=== PATIENT | female | born 1970 | race Caucasian/White ===

== ENCOUNTER 2016-09-03 14:42 | Inpatient (IN) | payer OTHER ==
[~2016-09-03] VITALS: Ht 165.1 cm; Wt 77.0 kg
[2016-09-03] MEDS ORDERED: MORP1CAP32 PO (15:00)
[2016-09-03] MEDS ORDERED: OXYC10TA12 PO (15:00)
[2016-09-03] MEDS ORDERED: PRED20TA PO (15:00)
[2016-09-03] MEDS ORDERED: MORP-38 PO (15:00)
[2016-09-03] MEDS ORDERED: IBUP600T26 PO (15:00)
[2016-09-03] MEDS ORDERED: NS 500 ML IV ONE (15:15)
[2016-09-03 15:32] LABS: BASO % 0.4 % (0.0-1.0); EOS # 0.7 K/mm3 (0.0-0.50); EOS % 6.1 % (0.0-3.0); LARGE UNSTAINED CELL # 0.1 K/mm3 (0.0-0.4); LARGE UNSTAINED CELL % 0.9 % (0.0-4.0); LYMPH # 2.6 K/mm3 (1.5-4.5); LYMPH % 21.3 % (24.0-44.0); MEAN CORPUSCULAR HEMOGLOBIN 31.7 pg (27.0-33.0); MEAN CORPUSCULAR HGB CONC 33.3 g/dl (32.0-36.5); MEAN CORPUSCULAR VOLUME 95.4 fl (80.0-96.0); MONO # 0.6 K/mm3 (0.0-0.8); MONO % 4.7 % (0.0-5.0); NEUTROPHILS # 7.9 K/mm3 (1.8-7.7); NEUTROPHILS % 66.7 % (36.0-66.0); PLATELET COUNT, AUTOMATED 300 k/mm3 (150-450); RED CELL DISTRIBUTION WIDTH 12.5 % (11.5-14.5); WHITE BLOOD COUNT 11.9 K/mm3 (4.0-10.0)
[2016-09-03 15:38] LABS: INR 0.92
[2016-09-03 15:39] LABS: ANION GAP 7 MEQ/L (8-16); BLOOD UREA NITROGEN 8 MG/DL (7-18); CARBON DIOXIDE LEVEL 27 MEQ/L (21-32); CHLORIDE LEVEL 106 MEQ/L (98-107); CREATININE FOR GFR 0.91 MG/DL (0.55-1.02); GLOMERULAR FILTRATION RATE > 60.0 (>58); GLUCOSE, FASTING 109 MG/DL (70-105); POTASSIUM SERUM 4.2 MEQ/L (3.5-5.1); SODIUM LEVEL 140 MEQ/L (136-145)
[2016-09-03] MEDS ORDERED: ACETAMINOPHEN TAB 650MG DOSE (2X325MG) PO PRN (17:45)
[2016-09-03] MEDS ORDERED: ONDANSETRON 4MG/2ML VIAL (J2405) IV PRN (17:45)
[2016-09-03] MEDS ORDERED: ZANA4TAB PO (18:16)
[2016-09-03] MEDS ORDERED: MORP30TASA PO (18:16)
[2016-09-03] MEDS ORDERED: NALOXONE INJ 0.4 MG/1 ML VIAL (J2310) IV PRN (18:45)
[2016-09-03] MEDS: MORPHINE 15 MG SA TAB PO SCH (20:08)
[2016-09-03] MEDS: MORPHINE 30 MG SA TAB PO SCH (20:09)
[2016-09-03] MEDS: IBUPROFEN 600 MG TAB PO PRN (20:12)
[2016-09-03 20:15] VITALS: BP 158/82
--- NOTE | 2016-09-03 20:25 | HPE ---
DATE OF ADMISSION: 09/03/2016 PRIMARY CARE PHYSICIAN: [facility] ([place]) [facility]. INPATIENT HOSPITALIST ATTENDING: Dr. Rickie Mcdowell. CHIEF COMPLAINT: Right arm numbness. HISTORY OF PRESENT ILLNESS: A 46-year-old female with a history of C6-C7 fusion seven years ago, with persistent pain, fibromyalgia, obstructive sleep apnea, chronic migraine post spinal surgery, depression, degenerative joint disease, C6-C7 disc herniation, tachycardia, hyperlipidemia, who presents to the emergency room with acute onset of right arm numbness. The patient had company last night with a friend visiting and had stayed up late. This morning at 10 a.m., her had given her her medications as usual and she appeared normal. At 1 p.m. when she awakened, the patient, according to the , had slurring of speech as if her tongue was swollen. She was unable to feel the right arm and complained of heaviness and numbness from the elbow to the fingertips. She was unable to pronounce words and had difficulty finding the right words. There was no facial asymmetry, no confusion according to the . She denied any lower extremity weakness or numbness. No prior episode of this previously. No changes in her medications for the past few months. The patient usually gets injections to the cervical spine at the [facility] every three months, and recent one was about a month ago. She denies any fever, chills. Initially had no changes in vision, but on exam in the emergency room, she had right upper quadrant anopsia which resolved within two hours. The stated that the slurring of speech lasted for about 3-4 hours. She denied any headache, denied any diplopia, nasal congestion, chest pain, pressure, tightness, shortness of breath, palpitations. Denies any dizziness or lightheadedness. The patient presented to the emergency room (ER) for further evaluation, was found to have a right upper quadrant visual field loss, which resolved after two hours. The patient continued to have right arm numbness from the elbow to the fingertips, with gripping maintained. She had dysmetria on [id number]-[id number] testing on the right but not on the left. The patient's speech resolved within two hours of arrival in the emergency room according to the . She had no facial asymmetry. CT of the head showed no acute intracranial abnormality. Hospitalist service was called for admission for evaluation of right arm numbness. PAST MEDICAL HISTORY: 1. C6-C7 cervical spine fusion seven years ago. 2. Chronic pain. 3. Fibromyalgia. 4. Degenerative joint disease. 5. Obstructive sleep apnea. 6. History of migraine post spinal surgery. 7. Depression. 8. Disc herniation. 9. Tachycardia. 10. Hyperlipidemia. 11. Posttraumatic stress disorder (PTSD). ALLERGIES: 1. TOPAMAX - causing anger. 2. AMBIEN - nightmares. 3. SKELAXIN - increased migraines. 4. CT DYE - joint pain. 5. NEURONTIN - arthralgias. PAST SURGICAL HISTORY: 1. C6-C7 fusion surgery 2006, Dr. Nelson Braahona. 2. Tonsillectomy in her 30s. 3. Adenoidectomy age 11. SOCIAL HISTORY: Previous . Currently on disability. Still smokes two packs a day for the past 20 years. Alcohol use wine once or twice a week. FAMILY HISTORY: Mother alive, age 64 with no medical problems. Father alive in his 60s with neck issues. REVIEW OF SYSTEMS: Per history of present illness (HPI). 12-point system otherwise negative. PHYSICAL EXAMINATION: VITAL SIGNS: Temperature 97.2, pulse 70 sinus, respiratory rate 18, blood pressure 109/72, 95% on room air. GENERAL: The patient is awake, alert, and oriented times three. Able to provide a history. There is no facial asymmetry, no cyanosis, no use of respiratory accessory muscles. Face is symmetric. Tongue is midline. She has no pronator drift. Right-sided dysmetria on [id number]-am-[id number] testing. She has decreased sensation from elbow to the fingertips on the right. No cyanosis on exam. Motor function is 5/5 times four extremities. Gait is normal. LUNGS: Clear to auscultation. No wheezes, rales, or rhonchi. HEART: S1, S2. Sinus rhythm. ABDOMEN: Soft, nontender, nondistended. Positive bowel sounds. EXTREMITIES: No cyanosis, clubbing or pitting edema. LABORATORY DATA: White count 11.9, hemoglobin 13, hematocrit 40, platelet count 300, 66% neutrophils. Sodium 140, potassium 4.2, chloride 106, bicarbonate 27, BUN 8, creatinine 0.91, glucose of 109. INR is 0.92. MICROBIOLOGY: None. IMAGING: CT head: No acute intracranial pathology. Chest x-ray: Minor fibrosis noted in lower lungs without edema, cardiomyopathy, effusion, or acute infiltrate. Mild curvature of thoracic and lumbar spine without acute bony findings. On 10/31/2011, cervical spine x-ray showed unremarkable cervical spine series. MRI of the brain, MRI of cervical spine still pending. ASSESSMENT AND PLAN: This is a 46-year-old female, history of fibromyalgia, C6-C7 fusion surgery with chronic pain and migraines post spinal surgery, depression, degenerative joint disease, disc herniation, tachycardia, hyperlipidemia, obstructive sleep apnea, presents to the emergency room with acute onset of right arm numbness from the elbow to the fingertips with good motor function. Per the , the patient had 3-4 hour history of slurred speech as if the patient had a swollen tongue, which resolved in the emergency room. CT of the head is negative for acute cerebrovascular accident (CVA). Hospitalist service was asked to admit for observation. The patient will be admitted for observation, placed under hospitalist service, Dr. Rickie Mcdowell, for the following issues: 1. Right arm numbness. The patient currently denies any headache. CT of the head is negative for acute CVA. She does have a prior history of chronic migraines. We will obtain an MRI of the brain, MRI of the cervical spine, consult neurology Dr. Palacios. No other focal deficits at this time. The patient's slurred speech has resolved. We will give an aspirin 81 mg times one for now. Further evaluation if abnormal MRI of the brain and cervical spine. Neurologic checks in telemetry. Rule out arrhythmia. Neurologic checks every four hours. Page MD for any new neurological changes, and neurology consult. 2. Active smoking. Tobacco cessation counseling. Nicotine patch or nicotine gum. 3. Chronic pain. May resume home dose of morphine 15 mg twice a day extended release and 60 mg twice a day. Monitor for any neurological changes. Follows at the [facility] with every three monthly injections. Last injection was one month ago. 4. History of obstructive sleep apnea. Check nocturnal pulse oximetry. 5. History of fibromyalgia. Continue the outpatient medications which have not been changed for several years. 6. History of depression, not on any antidepressants. No suicidal ideation. 7. Hyperlipidemia. Check fasting lipid profile in the morning. [facility] SYSTEM[facility]
[2016-09-03] MEDS: HEPARIN SOD (PORCINE) 5000 UNITS/ML VIAL SC SCH (21:53)
--- NOTE | 2016-09-03 22:30 | REPUSA ---
MRI cervical spine without contrast Clinical statement: left arm numbness. Technique: Multiecho multiplanar MRI images of the cervical spine were obtained without administratio n of contrast. No comparison is available. Findings: The cervical vertebral bodies are in satisfactory position and alignment. Anterior surgical fusion changes are noted at C6/C7. No fractures or dislocations are demonstrated. Normal heterogeneo us bone marrow signal is noted. No osseous tumors are seen. The visualized portions of the posterior fossa are unremarkable. The cervical cranial junction is intact. The intervertebral disc spaces and h eights are well-maintained. The facet joints are intact without evidence of subluxation. The cervical spinal cord demonstrates normal signal and contour. The surrounding soft tissues are within normal l imits. At C6/C7, surgical fusion changes are noted. There is a disc osteophyte complex at this level, causin g mass effect on the anterior thecal sac. The central canal measures 9 mm in diameter. The neural for amen are patent. The other cervical vertebral levels are unremarkable. Impression: 1. No acute abnormality. 2. Surgical fusion changes at C6/C7. Moderate disc osteophyte complex is appreciated at this level ca using moderate central canal narrowing. ER nurse, Chandni, was notified of these findings and the findings of the MRI brain at 10:27 PM on 09/04/19 17. The nurse is to notify the hospitalist, but the hospitalist has also been paged to my number, and I am awaitng a call.
--- NOTE | 2016-09-03 22:30 | REPUSA ---
MRI of the brain Clinical history: neck pain, right arm numbness. Technique: Multiecho multiplanar MRI images of the brain were obtained without administration of cont rast. Diffusion weighted images with ADC mapping was also obtained. Findings: The ventricles and sulci are symmetric bilaterally. There is a focal area restricted diffusion in the head of the left caudate nucleus, with minimal restricted diffusion demonstrated within the body of the caudate nucleus. No surrounding edema is appreciated. The brain parenchyma otherwise demonstrates uniform and normal signal on all sequences. There is no midline shift, mass effect, or extra-axial f luid collection. The midline intracranial structures do not demonstrate any gross abnormalities. The cervical cranial junction is intact. The orbits are unremarkable. The visualized paranasal sinuses an d mastoid air cells are clear. The osseous structures and superficial soft tissues are unremarkable. The vascular structures demonstrate appropriate flow voids. Impression: Restricted diffusion in the head and body of the left caudate nucleus, consistent with an acute infarct. No surrounding edema or mass effect is identified at this time. Call will be placed to the ER, and documented on the MRI of the Cervical Spine.
[2016-09-03] MEDS: ATORVASTATIN 20 MG TAB PO SCH (23:10)
[2016-09-04] VITALS (7 sets, daily range): BP systolic 106–167; BP diastolic 57–89
[2016-09-04 00:11] LABS: ERYTHROCYTE SEDIMENTATION RATE 5 mm/hr (0-20)
[2016-09-04 05:41] LABS: BASO % 0.4 % (0.0-1.0); EOS # 0.6 K/mm3 (0.0-0.50); EOS % 7.7 % (0.0-3.0); LARGE UNSTAINED CELL # 0.1 K/mm3 (0.0-0.4); LARGE UNSTAINED CELL % 1.4 % (0.0-4.0); LYMPH # 3.2 K/mm3 (1.5-4.5); LYMPH % 39.3 % (24.0-44.0); MEAN CORPUSCULAR HEMOGLOBIN 31.7 pg (27.0-33.0); MEAN CORPUSCULAR HGB CONC 32.8 g/dl (32.0-36.5); MEAN CORPUSCULAR VOLUME 96.5 fl (80.0-96.0); MONO # 0.5 K/mm3 (0.0-0.8); MONO % 6.5 % (0.0-5.0); NEUTROPHILS # 3.5 K/mm3 (1.8-7.7); NEUTROPHILS % 44.8 % (36.0-66.0); PLATELET COUNT, AUTOMATED 265 k/mm3 (150-450); RED CELL DISTRIBUTION WIDTH 12.6 % (11.5-14.5); WHITE BLOOD COUNT 7.8 K/mm3 (4.0-10.0)
[2016-09-04 06:11] LABS: ANION GAP 5 MEQ/L (8-16); BLOOD UREA NITROGEN 7 MG/DL (7-18); CARBON DIOXIDE LEVEL 28 MEQ/L (21-32); CHLORIDE LEVEL 108 MEQ/L (98-107); CHOLESTEROL LEVEL 215 MG/DL (<200); CREATININE FOR GFR 0.74 MG/DL (0.55-1.02); GLOMERULAR FILTRATION RATE > 60.0 (>58); GLUCOSE, FASTING 105 MG/DL (70-105); POTASSIUM SERUM 4.1 MEQ/L (3.5-5.1); SODIUM LEVEL 141 MEQ/L (136-145); TRIGLYCERIDES LEVEL 231 MG/DL (<150)
[2016-09-04] MEDS: HEPARIN SOD (PORCINE) 5000 UNITS/ML VIAL SC SCH ×3 (06:38→21:09)
--- NOTE | 2016-09-04 07:28 | REP ---
CT BRAIN WITHOUT CONTRAST: 09/03/2016. Comparison 11/23/2011, 12/27/2007 MRI brain. Findings: Noncontrast images show ventricles midline, symmetric and without dilatation or displacement. Basal ganglia symmetric and normal. The frederick-white junction differentiation was well maintained. Cortical stripe was preserved. There is no atrophy, intracranial hemorrhage, mass, mass effect or edema. No extra-axial fluid collection noted. Brainstem unremarkable. Cerebellum shows no mass or atrophy. Basal cisterns were intact. Mastoids, visualized sinuses, skull base and calvarium are without acute finding. Impression: 1. Negative CT brain for any intracranial abnormality nor findings in the skull, skull base, sinuses or mastoids visible. Signed by Adis Barnard MD 09/04/2016 08:05 A
--- NOTE | 2016-09-04 07:30 | REP ---
AP PORTABLE CHEST: 09/03/2016. Comparison 11/21/2008. Clinical history: CVA symptoms. Findings. Lungs are well inflated. Chest wall jewelry noted bilaterally. There is a dextroconvex curvature in the thoracic spine with levorotatory curvature in the lumbar spine. The lowermost portion of a plate and screw fixation device in the cervical spine was noted. Heart is not enlarged. The aorta is normal for age. Airway is intact. There is no mediastinal or hilar mass. Some minor interstitial changes mid and lower lung zones but no acute infiltrate, effusion, pleural thickening or atelectasis. Heart is not enlarged. There is no vascular redistribution or edema. The aorta is normal for age. Impression: 1. Minor interstitial fibrotic changes noted mid and lower lung zones without cardiomegaly, edema, effusion or acute infiltrate. 2. Mild curvature in the thoracic and lumbar spine without acute bony finding. Signed by Adis Barnard MD 09/04/2016 08:05 A
[2016-09-04] MEDS: ASPIRIN 325 MG TAB PO SCH (08:36)
[2016-09-04] MEDS: MORPHINE 15 MG SA TAB PO SCH ×2 (08:36→21:08)
[2016-09-04] MEDS: MORPHINE 30 MG SA TAB PO SCH ×2 (08:37→21:08)
--- NOTE | 2016-09-04 08:57 | REP ---
CERVICAL SPINE THREE VIEWS: 09/03/2016. Clinical history: Right arm numbness. History of C6-C7 fusion. Findings: Open-mouth view was repeated. Dens and lateral masses of C1 align normally. On the lateral projection, the C1-2 relationship is normal. There has been fusion at C6-7 with graft incorporation and hardware including screws unremarkable. No change in alignment from the 2012 study. Disc space heights and vertebral body heights are intact. There is loss of normal cervical lordosis as on the previous study. No compression deformity is seen. Pedicles, spinous and transverse processes grossly intact. Impression: 1. Status post C6-C7 anterior cervical discectomy and fusion with graft incorporation and the hardware intact. Alignment unchanged. 2. Straightening of the spine as before. No new or acute finding. Signed by Adis Barnard MD 09/04/2016 09:10 A
[2016-09-04] MEDS ORDERED: ASPIRIN 81 MG ENTERIC TAB PO SCH (09:00)
[2016-09-04] MEDS ORDERED: ENOXAPARIN 30 MG/0.3 ML SYR (J1650) SC SCH (09:00)
[2016-09-04] MEDS: NS 1,000 ML IV SCH ×2 (10:00→18:12)
[2016-09-04] MEDS: IBUPROFEN 600 MG TAB PO PRN ×2 (12:00→18:29)
--- NOTE | 2016-09-04 13:46 | IPNPDOC ---
Text Note Date of Service The patient was seen on 09/04/16. NOTE Subjective: Pt states that her vision deficit/dysarthria/dysmetria has resolved. She still has some numbness in the right upper extremity below the elbow. Objective: Vitals: (see below) General: No acute distress, laying comfortably in bed. HEENT: Moist mucous membranes. Neck: No JVD or lymphadenopathy Cardiac: RRR, No murmurs Pulm: Clear to auscultation b/l. No wheezing, rhonchi Abd: NT/ND + BS Ext: No edema or cyanosis. Distal pulses intact and right upper extremity. Mild swelling in the right upper extremity below the elbow however for the patient does have a peripheral IV fluids running. Neuro: Strength 5/5 BUE and BLE. CN 2-12 intact. F to N intact Negative pronator drift. Negative Babinki. Sensation to fine/sharp touch intact in RUE. NIH 0 Labs (see below) Images: MRI cervical spine 09/03/16 Findings: The cervical vertebral bodies are in satisfactory position and alignment. Anterior surgical fusion changes are noted at C6/C7. No fractures or dislocations are demonstrated. Normal heterogeneous bone marrow signal is noted. No osseous tumors are seen. The visualized portions of the posterior fossa are unremarkable. The cervical cranial junction is intact. The intervertebral disc spaces and heights are well-maintained. The facet joints are intact without evidence of subluxation. The cervical spinal cord demonstrates normal signal and contour. The surrounding soft tissues are within normal limits. At C6/C7, surgical fusion changes are noted. There is a disc osteophyte complex at this level, causing mass effect on the anterior thecal sac. The central canal measures 9 mm in diameter. The neural foramen are patent. The other cervical vertebral levels are unremarkable. Impression: 1. No acute abnormality. 2. Surgical fusion changes at C6/C7. Moderate disc osteophyte complex is appreciated at this level causing moderate central canal narrowing. ER nurse, Chandni, was notified of these findings and the findings of the MRI brain at 10:27 PM on 09/03/2016. The nurse is to notify the hospitalist, but the hospitalist has also been paged to my number, and I am awaitng a call. MRI brain 09/03/16 Findings: The ventricles and sulci are symmetric bilaterally. There is a focal area restricted diffusion in the head of the left caudate nucleus, with minimal restricted diffusion demonstrated within the body of the caudate nucleus. No surrounding edema is appreciated. The brain parenchyma otherwise demonstrates uniform and normal signal on all sequences. There is no midline shift, mass effect, or extra-axial fluid collection. The midline intracranial structures do not demonstrate any gross abnormalities. The cervical cranial junction is intact. The orbits are unremarkable. The visualized paranasal sinuses and mastoid air cells are clear. The osseous structures and superficial soft tissues are unremarkable. The vascular structures demonstrate appropriate flow voids. Impression: Restricted diffusion in the head and body of the left caudate nucleus, consistent with an acute infarct. No surrounding edema or mass effect is identified at this time. CT head/01/12 Impression:1. Negative CT brain for any intracranial abnormality nor findings in the skull, skull base, sinuses or mastoids visible. Assessment/Plan 1. Acute CVA- symptoms resolved. NIH currently 0. MRI brain (see above). On aspirin and statin. Carotid ultrasound/MRA pending. Appreciate Dr. Palacios's input. Concerning for atrial fibrillation. We'll continue monitoring on telemetry. Patient currently smokes tobacco. I did offer her nicotine patch however she refused. I have also counseled her on tobacco cessation. She also states she is reluctant to take statin she does not feel that she needs it however she will consider taking. PT/OT/ST. Neuro checks every 4 hours. Transesophageal echo ordered by neurology. 2. White arm numbness with a history of C6-C7 cervical spine fusion 7 years ago - MR I cervical spine (see above). Will consult neurosurgery to review imaging. 3. Fibromyalgia/chronic pain- continue home meds 4. History of depression/PTSD- continue home meds 5. History of obstructive sleep apnea DVT prophy: Heparin subcutaneous VS,Fishbone, I+O VS, Fishbone, I+O Laboratory Tests 09/03/16 15:06 Calcium Level 9.0, Red Blood Count 4.25, Mean Corpuscular Volume 95.4, Mean Corpuscular Hemoglobin 31.7, Mean Corpuscular Hemoglobin Concent 33.3, Red Cell Distribution Width 12.5, Neutrophils (%) (Auto) 66.7 H, Lymphocytes (%) (Auto) 21.3 L, Monocytes (%) (Auto) 4.7, Eosinophils (%) (Auto) 6.1 H, Basophils (%) ( Auto) 0.4, Neutrophils # (Auto) 7.9 H, Lymphocytes # (Auto) 2.6, Monocytes # ( Auto) 0.6, Eosinophils # (Auto) 0.7 H, Basophils # (Auto) 0.0 09/04/16 05:23 Red Blood Count 3.98 L, Mean Corpuscular Volume 96.5 H, Mean Corpuscular Hemoglobin 31.7, Mean Corpuscular Hemoglobin Concent 32.8, Red Cell Distribution Width 12.6, Neutrophils (%) (Auto) 44.8, Lymphocytes (%) (Auto) 39.3, Monocytes (%) (Auto) 6.5 H, Eosinophils (%) (Auto) 7.7 H, Basophils (%) ( Auto) 0.4, Neutrophils # (Auto) 3.5, Lymphocytes # (Auto) 3.2, Monocytes # (Auto ) 0.5, Eosinophils # (Auto) 0.6 H, Basophils # (Auto) 0.0 Vital Signs Date Time Temp Pulse Resp B/P Pulse Ox O2 Delivery O2 Flow Rate FiO2 09/04/16 12:00 97.8 82 20 167/89 93 Room Air I&O- Last 24 Hours up to 6 AM 09/04/16 06:00 Intake Total 620 ml Output Total 0 ml Balance 620 ml ALLEN FIGUEORA MD Sep 04, 2016 13:46
[2016-09-04] MEDS: oxyCODONE 5MG TAB PO PRN (16:06)
[2016-09-04] MEDS: tiZANidine 4 MG TAB PO PRN (18:28)
--- NOTE | 2016-09-04 19:09 | CR ---
DATE OF CONSULTATION: 09/04/2016 REFERRING PHYSICIAN: Dr. Kristine Laura. REASON FOR CONSULTATION: Right arm numbness and slurred speech. HISTORY OF PRESENT ILLNESS: Kennedi Lemus is a 46-year-old woman with history of cervical fusion seven years ago, with persistent neck pain, fibromyalgia, obstructive sleep apnea, migraines, who was at her baseline state of health until Monday night when she went to bed around 02:30 a.m. She woke up around 10:00 a.m. and did not have any problems. She decided to go back to sleep. She woke up around 01:00 p.m. and had right arm numbness and slurred speech. She had word-finding difficulty. She came to [facility] by 03:00 p.m. Due to lack of clear onset time and low [employer] [place] [employer] (NIH) stroke scale, patient was not deemed to be a candidate for intravenous thrombolytics. The patient did not have any weakness of right arm. She did not have any problem with her balance. She denied any problems on left side of her body. She denies any seizures, dysphagia, dysarthria or diplopia currently. Her speech has improved. Her right arm numbness is 80% better. She denies any weakness. PAST MEDICAL HISTORY: 1. C6-C7 cervical fusion seven years ago. 2. Chronic neck pain. 3. Fibromyalgia. 4. Obstructive sleep apnea. 5. Chronic migraines. 6. Depression. 7. Tachycardia. 8. Post-traumatic stress disorder. ALLERGIES: TOPAMAX, AMBIEN, SKELAXIN, INTRAVENOUS CONTRAST DYE, GABAPENTIN. SOCIAL HISTORY: She smokes two packs per day. She denies illicit drugs. She drinks alcohol occasionally. FAMILY HISTORY: Father had neck issues. Mother does not have any medical problems. REVIEW OF SYSTEMS: All systems were reviewed and were found to be noncontributory except as mentioned in history present illness. PHYSICAL EXAMINATION: Respiratory 20, temperature 97.4, blood pressure 106/63. HEART: Regular rate and rhythm. LUNGS: Clear to auscultation. ABDOMEN: Soft, nontender, nondistended. NEUROLOGICAL EXAMINATION: Patient is awake, alert, oriented to place, person and time. Normal speech, comprehension and repetition. Extraocular muscles are intact. No facial weakness. Tongue and uvula are midline. 5/5 strength in all four extremities. Deep tendon flexes are 2+ throughout. Normal sensation in left arm and both lower extremities. She feels sensation to light touch, pinprick, vibration, 80% in right arm compared to left arm. No dysmetria or ataxia. DIAGNOSTIC STUDIES: Her MRI scan of brain was reviewed and showed a small left caudate nucleus ischemic stroke. MRI cervical spine showed moderate cervical stenosis at C6-C7 and postsurgical changes at the same level. ASSESSMENT: 1. Small left caudate nucleus ischemic stroke. 2. Tobacco abuse. 3. Chronic neck pain due to cervical disk disease. The patient is status post cervical fusion many years ago. PLAN: 1. Blood tests to rule out coagulopathy and vasculopathy. 2. She must quit smoking. 3. Transesophageal echocardiogram. 4. Carotid ultrasound and MRA brain. 5. Continue telemetry monitoring. 6. Aspirin 325 mg by mouth daily. 7. We should check her fasting lipid profile. She is already started on statins. 8. Follow with our office in two weeks after hospital discharge.
--- NOTE | 2016-09-04 20:57 | ECGEPIP ---
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
[2016-09-04] MEDS: ATORVASTATIN 20 MG TAB PO SCH (21:00)
[2016-09-05] MEDS: oxyCODONE 5MG TAB PO PRN ×2 (00:09→16:05)
[2016-09-05 04:45] VITALS: BP 134/78
[2016-09-05] MEDS: HEPARIN SOD (PORCINE) 5000 UNITS/ML VIAL SC SCH ×3 (05:23→21:17)
[2016-09-05 05:38] LABS: BASO % 0.4 % (0.0-1.0); EOS # 0.5 K/mm3 (0.0-0.50); EOS % 6.8 % (0.0-3.0); LARGE UNSTAINED CELL # 0.2 K/mm3 (0.0-0.4); LARGE UNSTAINED CELL % 1.9 % (0.0-4.0); LYMPH # 4.1 K/mm3 (1.5-4.5); LYMPH % 49.1 % (24.0-44.0); MEAN CORPUSCULAR HEMOGLOBIN 31.5 pg (27.0-33.0); MEAN CORPUSCULAR HGB CONC 32.6 g/dl (32.0-36.5); MEAN CORPUSCULAR VOLUME 96.7 fl (80.0-96.0); MONO # 0.4 K/mm3 (0.0-0.8); MONO % 4.9 % (0.0-5.0); NEUTROPHILS # 2.9 K/mm3 (1.8-7.7); NEUTROPHILS % 36.9 % (36.0-66.0); PLATELET COUNT, AUTOMATED 239 k/mm3 (150-450); RED CELL DISTRIBUTION WIDTH 12.3 % (11.5-14.5)
[2016-09-05 05:53] LABS: ANION GAP 7 MEQ/L (8-16); BLOOD UREA NITROGEN 8 MG/DL (7-18); CALCIUM LEVEL 7.9 MG/DL (8.5-10.1); CARBON DIOXIDE LEVEL 26 MEQ/L (21-32); CHLORIDE LEVEL 109 MEQ/L (98-107); CREATININE FOR GFR 0.82 MG/DL (0.55-1.02); GLOMERULAR FILTRATION RATE > 60.0 (>58); GLUCOSE, FASTING 107 MG/DL (70-105); POTASSIUM SERUM 3.9 MEQ/L (3.5-5.1); SODIUM LEVEL 142 MEQ/L (136-145)
--- NOTE | 2016-09-05 07:32 | REP ---
CAROTID DUPLEX ULTRASOUND: 09/04/2016 CLINICAL HISTORY: CVA symptoms. TECHNIQUE: Standard duplex techniques were utilized for both carotid systems. FINDINGS: The right common carotid shows no significant plaque except posteriorly with some minimal soft plaque at the bulb. No calcific plaque is seen in the proximal ICA without any visible or significant plaque. The left CCA shows only minimal intimal thickening without significant plaque. The bulb and proximal ICA show no soft or calcific plaque. Peak Velocities: RIGHT LEFT CCA systolic 0.85 0.85 m/s ICA systolic 0.78 0.69 m/s ICA diastolic 0.40 0.30 m/s ECA systolic 1.30 0.96 m/s IC/CC ratio 0.97 0.81 Cranial direction of flow is noted in the vertebral arteries bilaterally. The Doppler waveform analysis shows no significant spectral broadening or filling of the systolic window for either internal carotid. IMPRESSION: 1. Negative carotid duplex ultrasound. There is no hemodynamically significant or flow restricting lesion. Only trace amounts of plaque with only soft plaque noted at the bulb region. 2. Cranial direction of flow in the vertebral arteries. SEDRICKD
[2016-09-05 08:00] VITALS: BP 101/74
[2016-09-05] MEDS: MORPHINE 15 MG SA TAB PO SCH ×2 (08:29→21:19)
[2016-09-05] MEDS: ASPIRIN 325 MG TAB PO SCH (08:29)
[2016-09-05] MEDS: MORPHINE 30 MG SA TAB PO SCH ×2 (08:29→21:18)
[2016-09-05] MEDS: tiZANidine 4 MG TAB PO PRN (10:13)
[2016-09-05] MEDS: IBUPROFEN 600 MG TAB PO PRN ×2 (10:13→16:05)
--- NOTE | 2016-09-05 11:16 | REP ---
MR ANGIOGRAPHY THE BRAIN WITHOUT CONTRAST: HISTORY: Right-sided numbness. MRI study of the brain from September 03, 2016 showed an acute infarct pattern in the head of the caudate nucleus on the left. TECHNIQUE: 3D [id number] MR angiography of the brain is acquired in the usual fashion and maximal intensity projection images were generated in rotational format about the vertical and horizontal axes. In addition, source axial T1-weighted images are viewed in cine mode. MR ANGIOGRAPHIC FINDINGS: The distal vertebral arteries are patent and the left is somewhat larger than the right . Basilar artery is a little tortuous but widely patent. The posterior cerebral and superior cerebellar vessels are normal and symmetric. The distal internal carotid arteries are unremarkable. Anterior cerebral arteries appear intact. There is attenuation of the M1 segment of the middle cerebral artery on the left. This is the location of the origin of the medial and lateral lenticulostriate penetrating arteries, which would supply the head of the caudate nucleus on the left. No other abnormality. There is no visible amador aneurysm or arteriovenous malformation. IMPRESSION: There is attenuation of the left M1 middle cerebral artery segment compared to the right. Otherwise unremarkable MR angiography the brain. Signed by Kali Cruz MD 09/05/2016 11:51 A
[2016-09-05 12:00] VITALS: BP 119/73
[2016-09-05] MEDS ORDERED: SLF 3 ML SYR IV PRN (13:45)
[2016-09-05] MEDS: SLF 3 ML SYR IV SCH ×2 (14:04→21:19)
--- NOTE | 2016-09-05 14:04 | IPNPDOC ---
Text Note Date of Service The patient was seen on 09/05/16. NOTE Subjective: Pt states denies any complaints. Numbness in the right upper extremity has resolved. Objective: Vitals: (see below) General: No acute distress, laying comfortably in bed. HEENT: Moist mucous membranes. Neck: No JVD or lymphadenopathy Cardiac: RRR, No murmurs Pulm: Clear to auscultation b/l. No wheezing, rhonchi Abd: NT/ND + BS Ext: No edema or cyanosis. Distal pulses intact and right upper extremity. Mild swelling in the right upper extremity below the elbow however for the patient does have a peripheral IV fluids running. Neuro: Strength 5/5 BUE and BLE. CN 2-12 intact. F to N intact Negative pronator drift. Negative Babinki. Sensation to fine/sharp touch intact in RUE. NIH 0 Labs (see below) Images: MRI cervical spine 09/03/16 Findings: The cervical vertebral bodies are in satisfactory position and alignment. Anterior surgical fusion changes are noted at C6/C7. No fractures or dislocations are demonstrated. Normal heterogeneous bone marrow signal is noted. No osseous tumors are seen. The visualized portions of the posterior fossa are unremarkable. The cervical cranial junction is intact. The intervertebral disc spaces and heights are well-maintained. The facet joints are intact without evidence of subluxation. The cervical spinal cord demonstrates normal signal and contour. The surrounding soft tissues are within normal limits. At C6/C7, surgical fusion changes are noted. There is a disc osteophyte complex at this level, causing mass effect on the anterior thecal sac. The central canal measures 9 mm in diameter. The neural foramen are patent. The other cervical vertebral levels are unremarkable. Impression: 1. No acute abnormality. 2. Surgical fusion changes at C6/C7. Moderate disc osteophyte complex is appreciated at this level causing moderate central canal narrowing. ER nurse, Chandni, was notified of these findings and the findings of the MRI brain at 10:27 PM on 09/03/2016. The nurse is to notify the hospitalist, but the hospitalist has also been paged to my number, and I am awaitng a call. MRI brain 09/03/16 Findings: The ventricles and sulci are symmetric bilaterally. There is a focal area restricted diffusion in the head of the left caudate nucleus, with minimal restricted diffusion demonstrated within the body of the caudate nucleus. No surrounding edema is appreciated. The brain parenchyma otherwise demonstrates uniform and normal signal on all sequences. There is no midline shift, mass effect, or extra-axial fluid collection. The midline intracranial structures do not demonstrate any gross abnormalities. The cervical cranial junction is intact. The orbits are unremarkable. The visualized paranasal sinuses and mastoid air cells are clear. The osseous structures and superficial soft tissues are unremarkable. The vascular structures demonstrate appropriate flow voids. Impression: Restricted diffusion in the head and body of the left caudate nucleus, consistent with an acute infarct. No surrounding edema or mass effect is identified at this time. CT head/01/12 Impression:1. Negative CT brain for any intracranial abnormality nor findings in the skull, skull base, sinuses or mastoids visible. Assessment/Plan 1. Acute CVA- symptoms resolved. NIH currently 0. MRI brain (see above). On aspirin and statin. Carotid ultrasound/MRA pending. Appreciate Dr. Palacios's input. Concerning for atrial fibrillation. We'll continue monitoring on telemetry. Patient currently smokes tobacco. I did offer her nicotine patch however she refused. I have also counseled her on tobacco cessation. She also states she is reluctant to take statin she does not feel that she needs it however she will consider taking. PT/OT/ST. Neuro checks every 4 hours. Transesophageal echo ordered by neurology; I have spoken to Dr. Kelly, who will be doing it tomorrow at 3pm. 2. White arm numbness with a history of C6-C7 cervical spine fusion 7 years ago - MR I cervical spine (see above). Discussed with Dr. Meyers,, who believes that the surgical site looks good and although she has some canal stenosis above , there is no cord compression and no obvious reason for the numbness in her arm /hand. I have offered the patient to consult Dr. Barahona as he did her cervical fusion, however she declined and states that she will follow-up with an outpatient if she needs to. 3. Fibromyalgia/chronic pain- continue home meds 4. History of depression/PTSD- continue home meds 5. History of obstructive sleep apnea DVT prophy: Heparin subcutaneous VS,Fishbone, I+O VS, Fishbone, I+O Laboratory Tests 09/05/16 05:17 Calcium Level 7.9 L, Red Blood Count 3.72 L, Mean Corpuscular Volume 96.7 H, Mean Corpuscular Hemoglobin 31.5, Mean Corpuscular Hemoglobin Concent 32.6, Red Cell Distribution Width 12.3, Neutrophils (%) (Auto) 36.9, Lymphocytes (%) (Auto ) 49.1 H, Monocytes (%) (Auto) 4.9, Eosinophils (%) (Auto) 6.8 H, Basophils (%) (Auto) 0.4, Neutrophils # (Auto) 2.9, Lymphocytes # (Auto) 4.1, Monocytes # ( Auto) 0.4, Eosinophils # (Auto) 0.5, Basophils # (Auto) 0.0 Vital Signs Date Time Temp Pulse Resp B/P Pulse Ox O2 Delivery O2 Flow Rate FiO2 09/05/16 12:00 98.6 71 18 119/73 96 Room Air I&O- Last 24 Hours up to 6 AM 09/05/16 06:00 Intake Total 3105 ml Output Total 5100 ml Balance -1995 ml ALLEN FIGUEROA MD Sep 05, 2016 14:04
[2016-09-05 16:00] VITALS: BP 127/76
[2016-09-05 19:43] VITALS: BP 140/82
[2016-09-05] MEDS: ATORVASTATIN 20 MG TAB PO SCH (21:00)
[2016-09-05 23:43] VITALS: BP 127/79
[2016-09-06 04:26] VITALS: BP 105/68
[2016-09-06 05:30] LABS: BASO % 0.3 % (0.0-1.0); EOS # 0.6 K/mm3 (0.0-0.50); EOS % 7.4 % (0.0-3.0); LARGE UNSTAINED CELL # 0.1 K/mm3 (0.0-0.4); LARGE UNSTAINED CELL % 1.3 % (0.0-4.0); LYMPH # 3.7 K/mm3 (1.5-4.5); LYMPH % 43.9 % (24.0-44.0); MEAN CORPUSCULAR HEMOGLOBIN 31.4 pg (27.0-33.0); MEAN CORPUSCULAR HGB CONC 33.2 g/dl (32.0-36.5); MEAN CORPUSCULAR VOLUME 94.4 fl (80.0-96.0); MONO # 0.4 K/mm3 (0.0-0.8); NEUTROPHILS # 3.4 K/mm3 (1.8-7.7); NEUTROPHILS % 42.2 % (36.0-66.0); PLATELET COUNT, AUTOMATED 229 k/mm3 (150-450); RED CELL DISTRIBUTION WIDTH 12.2 % (11.5-14.5); WHITE BLOOD COUNT 8.1 K/mm3 (4.0-10.0)
[2016-09-06] MEDS: SLF 3 ML SYR IV SCH ×2 (05:40→14:44)
[2016-09-06] MEDS: HEPARIN SOD (PORCINE) 5000 UNITS/ML VIAL SC SCH ×2 (05:40→14:44)
[2016-09-06] MEDS: IBUPROFEN 600 MG TAB PO PRN ×2 (05:41→18:05)
[2016-09-06 05:54] LABS: BLOOD UREA NITROGEN 7 MG/DL (7-18); CREATININE FOR GFR 0.86 MG/DL (0.55-1.02); GLUCOSE, FASTING 101 MG/DL (70-105)
[2016-09-06 05:55] LABS: ANION GAP 8 MEQ/L (8-16); CALCIUM LEVEL 8.9 MG/DL (8.5-10.1); CARBON DIOXIDE LEVEL 27 MEQ/L (21-32); CHLORIDE LEVEL 108 MEQ/L (98-107); GLOMERULAR FILTRATION RATE > 60.0 (>58); POTASSIUM SERUM 3.9 MEQ/L (3.5-5.1); SODIUM LEVEL 143 MEQ/L (136-145)
[2016-09-06 07:45] VITALS: BP 104/63
[2016-09-06] MEDS: ASPIRIN 325 MG TAB PO SCH (08:38)
[2016-09-06] MEDS: MORPHINE 30 MG SA TAB PO SCH (08:39)
[2016-09-06] MEDS: MORPHINE 15 MG SA TAB PO SCH (08:39)
[2016-09-06] MEDS: tiZANidine 4 MG TAB PO PRN (09:37)
[2016-09-06 12:00] VITALS: BP 121/67
[2016-09-06] MEDS ORDERED: MIDAZOLAM INJ 2 MG/2 ML VIAL (J2250) As Ordered ONE ×3 (15:04→15:20)
[2016-09-06] MEDS ORDERED: LIDOCAINE VISCOUS 2% SOLN 15ML UDC As Ordered ONE ×2 (15:09→15:10)
[2016-09-06] MEDS ORDERED: fentaNYL 100 MCG/2 ML INJECTION (J3010) As Ordered ONE (15:19)
[2016-09-06 16:15] VITALS: BP 122/79
--- NOTE | 2016-09-06 16:26 | T-ECHO ---
DATE OF PROCEDURE: 09/06/2016 REFERRING PHYSICIAN: Dr. Mcdowell INDICATION: Stroke. PROCEDURE: Transesophageal echocardiogram. FINDINGS: Essentially normal transesophageal echocardiogram. PROCEDURE NOTE: Mrs. Lemus is a 46-year-old white female who presented with ischemic stroke. Transesophageal echocardiogram was recommended by neurology service. I met with the patient the night before the procedure. I explained the rationale and potential complications and findings, and she signed appropriate consent. The procedure was performed in endoscopy suite. DESCRIPTION OF PROCEDURE: The patient was brought to endoscopy suite in fasting condition. Her posterior pharynx was anesthetized using viscous lidocaine and Cetacaine spray. She was sedated using a total of 6 mg of IV Versed and 100 mcg is of IV fentanyl. When appropriate level of sedation was accomplished, probe was introduced into esophagus and later stomach without difficulty. After appropriate images were obtained, it was withdrawn. There were no complications, and the patient tolerated the procedure well. FINDINGS: Both atria appear normal. Both right and left ventricle have normal contractility. Estimated left ventricular ejection fraction (LVEF) around 65%. Left atrium is normal size. Left atrial appendage is free of thrombus. There is normal flow pattern in both left-sided and right-sided pulmonary veins. Atrial septum is intact based on 2D, color Doppler imaging as well as there is no evidence for shunt based on injection of agitated saline. Tricuspid valve is normal. There is no stenosis or insufficiency. Same applies for mitral and aortic valve. Pulmonic valve was also well seen and appeared normal without stenosis or insufficiency. No pericardial effusion is present. Aortic arch and visualized segment of descending and ascending aorta are free of significant atherosclerosis. CONCLUSIONS: Essentially normal transesophageal echocardiogram. COMMENT: The patient will move back to the progressive care unit (PCU) when meeting criteria and then there is a tentative plan for her to be discharged home later today.
--- NOTE | 2016-09-06 17:39 | IPN ---
DATE: 09/06/2016 SUBJECTIVE: Patient seen and examined in the room today. Patient placed on nothing by mouth since midnight for transesophageal echocardiogram (ARETHA) scheduled for this afternoon. Patient denied any recurrence of symptoms. I reviewed patient's medication list and discovered patient has been refusing the Lipitor since admission and patient was admitted for stroke. Patient stated she does not believe in the effect of statins, and even though I discussed with patient that she had a stroke and she has elevated lipid panel, she still continues to refuse the statin. The risks and the benefits of statins were explained to the patient. Patient stated she understands; however, she refused to follow recommendation after a long discussion. OBJECTIVE: VITAL SIGNS: Temperature 97.8, pulse 54, respirations 22, blood pressure 104/63, pulse oximetry 96% on room air. GENERAL: No signs of acute distress. Alert and oriented times three. HEENT: Normocephalic, atraumatic. Extraocular motor grossly intact. CARDIOVASCULAR: Positive S1, S2. Regular rate. LUNGS: Clear to auscultation bilaterally. No wheezes or rhonchi. ABDOMEN: Soft, nontender, nondistended. Bowel sounds present. No rebound. No guarding. EXTREMITIES: No edema. No cyanosis. LABORATORY DATA: WBC 8.1, hemoglobin 11.7, hematocrit 35.8, platelet count 229. Sodium 143, potassium 3.9, chloride 27, BUN 7, creatinine 0.86, GFR greater than 60, fasting glucose 101, calcium 8.9. ASSESSMENT AND PLAN: 1. Left caudate nucleus ischemic stroke. Nephrology is consulted. Recommend a transesophageal echocardiogram (ARETHA). Patient will have a scheduled ARETHA by Dr. Kelly this afternoon. Patient has been on nothing by mouth. Patient is currently on aspirin 325 by mouth daily. Statin has been recommend; however, patient continues to refuse, even after a long discussion, patient refused to take statin. Patient has a significant tobacco abuse history. 2. Fibromyalgia/chronic pain. Patient has morphine sulfate (MS Contin) scheduled. Patient also has as needed oxycodone. 3. History of depression and posttraumatic stress disorder (PTSD). Continue to monitor. Patient is not taking any medications. 4. History of obstructive sleep apnea (TORI). 5. Chronic alcohol abuse. 6. Deep venous thrombosis (DVT) prophylaxis. Patient is on heparin.
[2016-09-06] MEDS: oxyCODONE 5MG TAB PO PRN (18:04)
[2016-09-06] MEDS ORDERED: ASPI325T PO (18:14)
[2016-09-06] MEDS ORDERED: ATOR1TAB21 PO (18:14)
[2016-09-08 00:07] LABS: SJOGREN'S ANTI SS-A <0.2 AI (0.0-0.9); SJOGREN'S ANTI SS-B <0.2 AI (0.0-0.9)
[2016-09-08 08:06] LABS: PROTEIN C ANTIGEN 109 % (60-150); PROTEIN S ANTIGEN FREE 116 % (57-157); PROTEIN S ANTIGEN TOTAL 128 % (60-150)
== END 2016-09-06 18:55 | disposition home or self-care (01) | DRG 66 ==
LOC: M ED 15:35 → M ED INP 17:38 → M PCU 09-04 00:03
PROVIDERS: ADMIT General Practice; ATTEND Internal Medicine
PROC: B246ZZ4 Ultrasonography of Right and Left Heart, Transesophageal (ICD-10-PCS; principal; 2016-09-06 15:15)
DX: I63.8 Other cerebral infarction (principal); R20.0 Anesthesia of skin; M79.7 Fibromyalgia; G47.33 Obstructive sleep apnea (adult) (pediatric); G43.709 Chronic migraine without aura, not intractable, without status migrainosus; F32.9 Major depressive disorder, single episode, unspecified; E78.5 Hyperlipidemia, unspecified; M54.2 Cervicalgia; F17.210 Nicotine dependence, cigarettes, uncomplicated; F10.10 Alcohol abuse, uncomplicated; M19.90 Unspecified osteoarthritis, unspecified site; F43.10 Post-traumatic stress disorder, unspecified; Z88.8 Allergy status to other drugs, medicaments and biological substances; Z91.041 Radiographic dye allergy status; Z98.1 Arthrodesis status; Z79.891 Long term (current) use of opiate analgesic; Z79.1 Long term (current) use of non-steroidal anti-inflammatories (NSAID)

== ENCOUNTER → 2017-06-27 | Outpatient (CLI) | payer OTHER | LOC: M RAD 13:35 | DX: Z12.31 Encounter for screening mammogram for malignant neoplasm of breast (principal) | CPT/HCPCS: 77067 ==

== ENCOUNTER → 2017-11-28 | Outpatient (REF) | LOC: M SMT 12:03 | DX: Z02.71 Encounter for disability determination (principal) ==

== ENCOUNTER → 2018-07-02 | Outpatient (CLI) | payer OTHER ==
[~2018-07-02] MED LIST: ASPI325T PO; ATOR1TAB21 PO; IBUP-1022 PO; MORP-38 PO; MORP1CAP32 PO; MORP30TASA PO; OXYC10TA12 PO; PRED20TA PO; ZANA4TAB PO
--- NOTE | 2018-07-02 14:15 | REPMRS ---
Patient History No known family history of cancer. 2D only. Digital Mammo Screening Bilat: July 02, 2018 - Exam #: [id number] Bilateral CC and MLO view(s) were taken. Technologist: Sandie Tam, Technologist Prior study comparison: June 27, 2017, bilateral digital mammo screening bilat performed at [facility] [place]. June 22, 2015, bilateral digital mammo screening bilat performed at [facility] [place]. FINDINGS: The breast tissue is heterogeneously dense. This may lower the sensitivity of mammography. There is a moderate amount of heterogeneously dense fibroglandular tissue which is fairly symmetric. There is no interval development of dominant mass, architectural distortion, or clustered microcalcification typical of malignancy. There has been no change in the appearance of the mammogram from the prior studies. Assessment: BI-RADS/ACR category 1 mammogram. Negative Mammogram. Recommendation Routine screening mammogram of both breasts in 1 year (for women over age 40). This patient's Lifetime Breast Cancer RIsk is estimated at 8.2 %. This mammogram was interpreted with the aid of an FDA-approved computer-aided dectection system. Electronically Signed By: Anish Cruz MD 07/02/18 [id number]
== END ==
LOC: M RAD 13:06
PROVIDERS: ATTEND Nurse Practitioner Family
DX: Z12.31 Encounter for screening mammogram for malignant neoplasm of breast (principal)

== ENCOUNTER → 2019-07-12 | Outpatient (CLI) | payer OTHER ==
[~2019-07-12] MED LIST changes: +ASPI-1 PO; -ASPI325T PO; -MORP-38 PO; +MORP-69 PO
--- NOTE | 2019-07-12 15:35 | REPMRS ---
Patient History The patient states she had a clinical breast exam in 03/2019. No known family history of cancer. Benign cyst aspiration of the right breast, 2002. No Hormone Replacement Therapy Digital Woman Screen Mammo: July 12, 2019 - Exam #: [id number] Bilateral CC and MLO view(s) were taken. Technologist: Maru Martinez, Technologist Prior study comparison: July 02, 2018, bilateral digital mammo screening bilat, performed at [facility]. June 27, 2017, bilateral digital mammo screening bilat, performed at [facility]. June 22, 2015, bilateral digital mammo screening bilat, performed at [facility]. FINDINGS: The breast tissue is heterogeneously dense. This may lower the sensitivity of mammography. There is a moderate amount of heterogeneously dense fibroglandular tissue which is fairly symmetric. There is no interval development of dominant mass, architectural distortion, or grouped microcalcification typical of malignancy. There has been no change in the appearance of the mammogram from the prior studies. 3-D tomosynthesis shows no additional findings. Assessment: BI-RADS/ACR category 1 mammogram. Negative Mammogram. Recommendation Routine screening mammogram of both breasts in 1 year (for women over age 40). This patient's Lifetime Breast Cancer RIsk is estimated at 8.1 %. This mammogram was interpreted with the aid of an FDA-approved computer-aided dectection system. Electronically Signed By: Anish Cruz MD 07/12/19 [id number]
== END ==
LOC: M WHC 14:30
PROVIDERS: ATTEND Nurse Practitioner Family
DX: Z12.31 Encounter for screening mammogram for malignant neoplasm of breast (principal)

== ENCOUNTER → 2020-07-13 | Outpatient (CLI) | payer OTHER ==
--- NOTE | 2020-07-13 17:45 | REPMRS ---
Patient History The patient states she had a clinical breast exam in 02/2020 Patient is postmenopausal. No known family history of cancer. Benign cyst aspiration of the right breast, 2002. No Hormone Replacement Therapy Digital Woman Screen Mammo: July 13, 2020 - Exam #: [id number] Bilateral CC and MLO view(s) were taken. Technologist: Olimpia Cesar, Technologist Prior study comparison: July 12, 2019, bilateral digital woman screen mammo performed at [facility]. July 02, 2018, bilateral digital mammo screening bilat, performed at [facility]. June 27, 2017, bilateral digital mammo screening bilat, performed at [facility]. FINDINGS: There are scattered fibroglandular densities. The Volpara volumetric breast density category is:B. There has been no change in the appearance of the mammogram from the prior studies. There is a mild amount of scattered fibroglandular density which is fairly symmetric. There is no interval development of dominant mass, architectural distortion, or grouped microcalcification suggestive of malignancy. 3-D tomosynthesis shows no additional findings. Assessment: BI-RADS/ACR category 1 mammogram. Negative Mammogram. Recommendation Routine screening mammogram of both breasts in 1 year (for women over age 40). This patient's [facility] Lifetime Breast Cancer Risk is estimated at 7.6 %. This mammogram was interpreted with the aid of an FDA-approved computer-aided dectection system. Electronically Signed By: Anish Cruz MD 07/13/20 [id number]
--- NOTE | 2020-07-14 09:08 | REP ---
INDICATION: DENSE BREASTS. Screening bilateral whole breast sonography. COMPARISON: Comparison is made with mammography from the same date.. TECHNIQUE: The whole breast screening bilateral breast sonography. FINDINGS: Whole breast sonography is performed in the right breast. Heterogeneous fibroglandular background echotexture is seen. There are multiple tiny subcentimeter cysts. The largest of these is a 4 mm cyst at 11 o'clock, 3 cm from the nipple. No mass, acoustic shadowing, or architectural distortion is seen in the right breast. Whole breast sonography is performed the left breast. Heterogeneous fibroglandular background echotexture is seen fear. There are several small subcentimeter cysts scattered in the left breast. The largest of these is at 1 o'clock, 2 cm from the nipple measuring 0.8 x 0.6 x 0.3 cm. No sonographically suspicious abnormality is seen. IMPRESSION: BI-RADS category 2 benign findings. <Electronically signed by Anish Cruz > 07/14/20 0904
== END ==
LOC: M WHC 13:51
PROVIDERS: ATTEND Nurse Practitioner Family
DX: Z12.31 Encounter for screening mammogram for malignant neoplasm of breast (principal); Z78.0 Asymptomatic menopausal state; N60.01 Solitary cyst of right breast

== ENCOUNTER → 2022-02-14 | Outpatient (CLI) | payer OTHER | LOC: M WHC 14:48 | PROVIDERS: ATTEND Nurse Practitioner Family | DX: Z12.31 Encounter for screening mammogram for malignant neoplasm of breast (principal) ==

== ENCOUNTER → 2023-01-17 | Outpatient (REF) | LOC: M PLAIMG 13:41 | PROVIDERS: ATTEND Internal Medicine | DX: R52 Pain, unspecified (principal) ==

== ENCOUNTER → 2023-03-09 | Outpatient (CLI) | payer OTHER | LOC: M WHC 12:43 | PROVIDERS: ATTEND Nurse Practitioner Family | DX: Z12.31 Encounter for screening mammogram for malignant neoplasm of breast (principal) ==